=== PATIENT | male | born 1975 | race Caucasian/White ===

== ENCOUNTER 2016-08-30 11:58 | Emergency (ER) | payer BC ==
[2016-08-30 12:35] LABS: ABSOLUTE MONOCYTES (AUTO) 1.7 10^3/uL (0.1-1.4); ABSOLUTE NEUT (AUTO) 12.3 10^3/uL (1.7-8.2); BASOPHILS % (AUTO) 0.2 % (0-2); EOSINOPHILS % (AUTO) 0.1 % (0-6); HEMATOCRIT 46.4 % (37.9-51.0); HEMOGLOBIN 15.9 g/dL (13.5-17.0); HGB HCT DIFFERENCE 1.3; LYMPHOCYTES % (AUTO) 17.8 % (13-45); MEAN CORPUSCULAR HEMOGLOBIN 31.7 pg (27.0-33.4); MEAN CORPUSCULAR HGB CONC 34.3 g/dL (32.0-36.0); MEAN CORPUSCULAR VOLUME 93 fl (80-97); MONOCYTES % (AUTO) 9.7 % (3-13); RED BLOOD COUNT 5.02 10^6/uL (4.35-5.55); RED CELL DISTRIBUTION WIDTH 13.1 % (11.5-14.0); SEGMENTED NEUTROPHILS % (AUTO) 72.2 % (42-78)
[2016-08-30 12:59] LABS: ALANINE AMINOTRANSFERASE 44 U/L (21-72); ALBUMIN 5.3 g/dL (3.5-5.0); ALKALINE PHOSPHATASE 74 U/L (38-126); ANION GAP 17 (5-19); ASPARTATE AMINO TRANSFERASE 52 U/L (17-59); BILIRUBIN,TOTAL 0.8 mg/dL (0.2-1.3); BLOOD UREA NITROGEN 25 mg/dL (7-20); CALCIUM 10.6 mg/dL (8.4-10.2); CARBON DIOXIDE 21 mmol/L (22-30); CHLORIDE 106 mmol/L (98-107); CREATININE RESULT 0.86 mg/dL (0.52-1.25); GLUCOSE 117 mg/dL (75-110); LIPASE 24.1 U/L (23-300); POTASSIUM 4.7 mmol/L (3.6-5.0); SODIUM 143.8 mmol/L (137-145); TOTAL PROTEIN 8.4 g/dL (6.3-8.2)
[2016-08-30] MEDS ORDERED: NORMAL SALINE 1000 ML 1,000 ML IV PRN (13:05)
[2016-08-30] MEDS ORDERED: ONDANSETRON HCL INJ/PF 4 MG/2 ML SDV IV ONE (13:05)
[2016-08-30] MEDS ORDERED: MORPHINE SULFATE 10 MG/ML INJ IV ONE (13:07)
[2016-08-30] MEDS ORDERED: KETOROLAC TROMETHAMINE INJ/PF 30 MG/1 ML SDV IV ONE (14:18)
[2016-08-30] MEDS ORDERED: DICYCLOMINE HCL INJ 20 MG/2 ML AMPULE IM ONE (14:19)
[2016-08-30] MEDS ORDERED: DICYCLOMINE HCL INJ 20 MG/2 ML AMPULE IM SCH (14:30)
[2016-08-30] MEDS ORDERED: NORMAL SALINE 1000 ML 1,000 ML IV ONE (14:48)
[2016-08-30 14:49] LABS: APPEARANCE,URINE CLEAR; BILIRUBIN,URINE NEGATIVE (NEGATIVE); GLUCOSE, URINE NEGATIVE (NEGATIVE); KETONES,URINE 20 mg/dL (NEGATIVE); LEUKOCYTE ESTERASE,URINE NEGATIVE (NEGATIVE); NITRITE,URINE NEGATIVE (NEGATIVE); PROTEIN,URINE NEGATIVE (NEGATIVE); UROBILINOGEN,URINE NEGATIVE mg/dL (<2.0)
[2016-08-30 14:50] LABS: URINE SPECIFIC GRAVITY > 1.060
--- NOTE | 2016-08-30 15:28 | ER Document Report ---
ED General - General Chief Complaint: Abdominal Pain Stated Complaint: VOMITING TRAVEL OUTSIDE OF THE [place] IN LAST 30 DAYS: No - HPI Patient complains to provider of: abdominal pain nausea vomiting diarrhea Notes: Patient was sent over from local urgent care for nausea vomiting diarrhea patient states lab work performed at urgent care showing a white count of 18, 000 patient is having some left-sided pain has a history of diverticulitis therefore was referred to the ER for further evaluation. Patient states multiple episodes of nausea vomiting. Patient was given IM injection of Phenergan at the local urgent care. Patient still states he is in pain and still having nausea. Otherwise denies fevers chills states that his was sick with something similar prior to him becoming sick. - Related Data Allergies/Adverse Reactions: Penicillins Allergy (Verified 05/14/16 13:36) Past Medical History - Social History Smoking Status: Unknown if Ever Smoked Family History: Arthritis, CAD, DM, Hyperlipidemia, Hypertension, Malignancy Musculoskeltal Medical History: Reports Hx Arthritis, Reports Hx Musculoskeletal Deformity, Reports Hx Musculoskeletal Trauma Traumatic Medical History: Reports: Hx Fractures - Hand Past Surgical History: Reports: Hx Appendectomy - Immunizations Hx Diphtheria, Pertussis, Tetanus Vaccination: Yes Review of Systems - Review of Systems Constitutional: No symptoms reported EENT: No symptoms reported Cardiovascular: No symptoms reported Respiratory: No symptoms reported Gastrointestinal: Abdominal pain, Diarrhea, Nausea, Vomiting Genitourinary: No symptoms reported Male Genitourinary: No symptoms reported Musculoskeletal: No symptoms reported Skin: No symptoms reported Hematologic/Lymphatic: No symptoms reported Neurological/Psychological: No symptoms reported -: Yes All other systems reviewed and negative Physical Exam - Vital signs Vitals: Temp Pulse Resp BP Pulse Ox 98.1 F 63 16 161/76 H 97 08/30/16 12:00 08/30/16 12:00 08/30/16 12:00 08/30/16 12:00 08/30/16 12:00 Interpretation: Normal - General General appearance: Appears well, Alert - HEENT Head: Normocephalic, Atraumatic Eyes: Normal Pupils: PERRL - Respiratory Respiratory status: No respiratory distress Chest status: Nontender Breath sounds: Normal Chest palpation: Normal - Cardiovascular Rhythm: Regular Heart sounds: Normal auscultation Murmur: No - Abdominal Inspection: Normal Distension: No distension Bowel sounds: Normal Tenderness: Tender - [id number] left lower quadrant tenderness. No: McBurney's point, Anthony's sign, Guarding, Rebound Organomegaly: No organomegaly - Back Back: Normal, Nontender - Extremities General upper extremity: Normal inspection, Nontender, Normal color, Normal ROM , Normal temperature General lower extremity: Normal inspection, Nontender, Normal color, Normal ROM , Normal temperature, Normal weight bearing. No: Darren's sign - Neurological Neuro grossly intact: Yes Cognition: Normal Orientation: AAOx4 [place] Coma Scale Eye Opening: Spontaneous [place] Coma Scale Verbal: Oriented [place] Coma Scale Motor: Obeys Commands [place] Coma Scale Total: 15 Speech: Normal Motor strength normal: LUE, RUE, LLE, RLE Sensory: Normal - Psychological Associated symptoms: Normal affect, Normal mood - Skin Skin Temperature: Warm Skin Moisture: Dry Skin Color: Normal Course - Re-evaluation Re-evalutation: 08/30/16 15:33 Patient's laboratory showed leukocytosis to 17. No bandemia. Patient had underwent a CT scan showing no signs of diverticulitis. Patient does not have fevers no bloody diarrhea fillet patient more likely has a gastroenteritis is viral. Patient was hydrated and was able tolerate orals. Patient will be discharged home pain medication nausea medication encouraged follow-up with primary care physician. - Vital Signs Vital signs: Temp Pulse Resp BP Pulse Ox 98.1 F 63 16 161/76 H 97 08/30/16 12:00 08/30/16 12:00 08/30/16 12:00 08/30/16 12:00 08/30/16 12:00 - Laboratory Result Diagrams: 08/30/16 12:17 08/30/16 12:17 Laboratory results interpreted by me: 08/30/16 08/30/16 08/30/16 12:17 12:17 14:32 WBC 17.0 H Absolute Neutrophils 12.3 H Absolute Monocytes 1.7 H Carbon Dioxide 21 L BUN 25 H Glucose 117 H Calcium 10.6 H Total Protein 8.4 H Albumin 5.3 H Urine Ketones 20 H Discharge - Discharge Clinical Impression: Nausea vomiting and diarrhea Abdominal pain Qualifiers: Abdominal location: unspecified location Qualified Code(s): R10.9 - Unspecified abdominal pain Condition: Good Disposition: HOME, SELF-CARE Instructions: Abdominal Pain ([facility]), Vomiting ([facility]), Diarrhea, Nonspecific ([facility]) , Gastroenteritis (adult) ([facility]) Additional Instructions: Your CAT scan today shows no signs of acute diverticulitis or infection of your bowel. More likely your suffering from a gastroenteritis which is viral. Please try to drink any fluids to stay hydrated. Return to the ER for worsening symptoms. Take medications as prescribed. I would observe a clear liquid diet for next 24 hours. Prescriptions: Ondansetron [Zofran Odt 4 mg Tablet] 4 mg PO Q4HP PRN #30 tab.rapdis PRN Reason: Promethazine HCl [Phenergan 25 mg Supp.rect] 25 mg GA Q4HP PRN #12 supp.rect PRN Reason: Oxycodone HCl 5 mg PO Q6 #30 tablet Promethazine HCl [Phenergan 25 mg Tablet] 25 - 50 mg PO ASDIR PRN #30 tablet PRN Reason: Forms: Return to Work
[2016-08-30 16:15] VITALS: BP 161/87
== END 2016-08-30 16:15 | disposition home or self-care (01) ==
LOC: ER 11:58
DX: R10.9 Unspecified abdominal pain (principal); R11.2 Nausea with vomiting, unspecified; R19.7 Diarrhea, unspecified; D72.829 Elevated white blood cell count, unspecified; R10.814 Left lower quadrant abdominal tenderness; Z87.19 Personal history of other diseases of the digestive system; Z88.0 Allergy status to penicillin; Z90.49 Acquired absence of other specified parts of digestive tract
CPT/HCPCS: 99284; 96372; 96361; 96374; 96375; 36415; 83690; 85025; 80053; 81001; 74177; J0500; J1885; J2270; J2405; J7030

== ENCOUNTER 2017-11-22 15:05 | Emergency (ER) | payer OTHER, BC ==
[2017-11-22] MEDS ORDERED: ACETAMINOPHEN 325 MG TABLET PO ONE (15:08)
--- NOTE | 2017-11-22 16:29 | RADIOLOGY REPORT (SQ) ---
EXAM DESCRIPTION: FINGER RIGHT COMPLETED DATE/TIME: 11/22/2017 4:17 pm REASON FOR STUDY: CRUSHED 30LB WEIGHT COMPARISON: None. NUMBER OF VIEWS: Three views. TECHNIQUE: AP, lateral, and oblique images acquired of the right thumb. LIMITATIONS: None. FINDINGS: MINERALIZATION: Normal. BONES: Oblique nondisplaced acute distal phalanx tuft fracture marked with arrows. SOFT TISSUES: Soft tissue laceration along the radial and palmar aspect of the right thumb finger tip with retained radiopaque debris in the wound. OTHER: No other significant finding. IMPRESSION: Oblique nondisplaced acute right thumb distal phalanx tuft fracture Soft tissue laceration with tiny radiopaque debris fragments present in the wound COMMENT: SITE OF TRAUMA/COMPLAINT MARKED/STAMP COMPLETED: Yes TECHNICAL DOCUMENTATION: JOB ID: [id number] [employer]- All Rights Reserved Reading location - IP/workstation name: [email or web address]
--- NOTE | 2017-11-22 16:38 | ER Document Report ---
HPI - HPI Patient complains to provider of: thumb injury Onset: Just prior to arrival Onset/Duration: Sudden Pain Level: 3 Context: 42 yo male had heavy wood fall on right thumb which caused skin avulsion (flap) and thumb tip injury. Tetanus is current. Associated Symptoms: None Exacerbated by: Movement Relieved by: Denies - ROS ROS below otherwise negative: Yes - MUSCULOSKELETAL Musculoskeletal: REPORTS: Extremity pain Past Medical History - General Information source: Patient - Social History Smoking Status: Current Every Day Smoker Chew tobacco use (# tins/day): No Drug Abuse: Marijuana Occupation: const[employer] Lives with: Family Family History: Arthritis, CAD, DM, Hyperlipidemia, Hypertension, Malignancy Patient has suicidal ideation: No Patient has homicidal ideation: No Renal/ Medical History: Denies: Hx Peritoneal Dialysis Musculoskeltal Medical History: Reports Hx Arthritis, Reports Hx Musculoskeletal Deformity, Reports Hx Musculoskeletal Trauma Traumatic Medical History: Reports: Hx Fractures - Hand Past Surgical History: Reports: Hx Appendectomy - Immunizations Hx Diphtheria, Pertussis, Tetanus Vaccination: Yes Vertical Provider Document - CONSTITUTIONAL Agree With Documented VS: Yes Exam Limitations: No Limitations General Appearance: No Apparent Distress - INFECTION CONTROL TRAVEL OUTSIDE OF THE [place] IN LAST 30 DAYS: No - HEENT HEENT: Normocephalic - MUSCULOSKELETAL/EXTREMETIES Musculoskeletal/Extremeties: MAEW, FROM - tendon function normal, right thumb with avuled/flap tissue from dip to pip lateral almendarez surface, tender thumb tip , vascular intac Course - Re-evaluation Re-evalutation: 11/22/17 tuft fx, non displaced per rad. - Vital Signs Vital signs: Temp Pulse Resp BP Pulse Ox 97.6 F 86 16 155/111 H 100 11/22/17 15:22 11/22/17 15:22 11/22/17 15:22 11/22/17 15:22 11/22/17 15:22 Procedures - Laceration/Wound Repair Right Thumb Time completed: 18:21 Wound length (cm): 4 - 4 x 1 partial thickness skin avulsion Wound's Depth, Shape: Superficial, Flap Laceration pre-procedure: Sterile drapes applied, Other - Surgeon scrubbed Anesthetic type: 1% Lidocaine Volume Anesthetic (mLs): 7 - Digital block Wound explored: Foreign body removed - Dirt debris removed with altered X scrub brush after the devitalized partial-thickness skin flap was excised Wound Repaired With: Other - No need for repair bacitracin and Vaseline gauze applied to the skin avulsion area Post-procedure NV exam normal: Yes Complications: No Discharge - Discharge Clinical Impression: Skin avulsion Thumb fracture Qualifiers: Encounter type: initial encounter Fracture type: open Phalanx: distal Fracture alignment: nondisplaced Laterality: right Qualified Code(s): S62.524B - Nondisplaced fracture of distal phalanx of right thumb, initial encounter for open fracture Condition: Good Disposition: HOME, SELF-CARE Instructions: Cephalexin ([facility]), Oral Narcotic Medication ([facility]), Skin Tear ([facility]) , Splint Precautions ([facility]), Tuft Fracture of the Finger ([facility]) Additional Instructions: Change the dressing daily to check wound for healing or infection Cephalexin to prevent infection See the orthopedist for follow-up Return to the emergency room any concerns Prescriptions: Cephalexin Monohydrate [Keflex 500 mg Capsule] 500 mg PO QID #28 capsule Oxycodone HCl/Acetaminophen [Percocet 5-325 mg Tablet] 1 - 2 tab PO ASDIR PRN # 15 tablet PRN Reason: Forms: Return to Work Referrals: [place] [facility] DO [ACTIVE STAFF] - Follow up in 1 week (call for appt)
[2017-11-22] MEDS ORDERED: CEPHALEXIN 500 MG CAPSULE PO ONE (16:41)
[2017-11-22] MEDS ORDERED: OXYCODONE HCL IR 5 MG TABLET PO ONE (16:41)
[2017-11-22] MEDS ORDERED: ONDANSETRON 4 MG TAB.RAPDIS PO ONE (16:41)
[2017-11-22] MEDS ORDERED: LIDOCAINE 1% INJ-PF (10 MG/ML) 30 ML SDV INJ ONE (16:45)
[2017-11-22 18:31] VITALS: BP 164/84
== END 2017-11-22 18:30 | disposition home or self-care (01) ==
LOC: ER 15:05
DX: S62.524B Nondisplaced fracture of distal phalanx of right thumb, initial encounter for open fracture (principal); W20.8XXA Other cause of strike by thrown, projected or falling object, initial encounter; Y99.0 Civilian activity done for income or pay; F17.200 Nicotine dependence, unspecified, uncomplicated
CPT/HCPCS: 99283; 73140; 64450; S0119; J3490